=== PATIENT | female | born 2000 | race Caucasian/White ===

== ENCOUNTER 2024-04-02 13:58 | Emergency (ER) | payer BC ==
[~2024-04-02] VITALS: Ht 165.1 cm; Wt 61.4 kg
[2024-04-02] MEDS ORDERED: CEPHALEXIN500 M1 PO (17:38)
[2024-04-02] MEDS ORDERED: PREDNISONE20 MG PO (17:38)
[2024-04-02 18:16] VITALS: BP 109/66; PULSE 80; TEMP 98
== END 2024-04-02 18:16 | disposition home or self-care (01) ==
LOC: COL.ER 13:58
DX: S20.162A Insect bite (nonvenomous) of breast, left breast, initial encounter (principal); L08.9 Local infection of the skin and subcutaneous tissue, unspecified; W57.XXXA Bitten or stung by nonvenomous insect and other nonvenomous arthropods, initial encounter